=== PATIENT | female | born 1950 | race Caucasian/White ===

== ENCOUNTER 2020-09-03 07:58 | Emergency (ER) | payer OTHER, SELFPAY ==
[2020-09-03 07:59] VITALS: BP 124/78; PULSE 76; RESP 16; TEMP 36.4; O2SAT 97; BMI 30.2
--- NOTE | 2020-09-03 08:36 | ED.VISSUMM ---
- ER Visit Summary Date of Service: 09/03/20 Chief Complaint: Constipation History of Present Illness: The patient is a 70 F with constipation for the past 10 days. She is passing some small hard stools. She is not having any significant pain in her abdomen or rectum. She is not having any vomiting. No recent illnesses or fevers. No urinary symptoms. She had prior colonoscopies that showed polyps. Nothing recently. She had a remote hysterectomy but no other abdominal surgeries. No history of hernia. She had recent laboratory studies. No abnormalities like low potassium in her history. She has been trying to increase her fluids and activity. She is taking prunes, MiraLAX, milk of magnesia. She had some liquid runoff but nothing else. Physical Examination: Afebrile and vital signs unremarkable. Alert and in no acute distress. Abdomen soft and nontender. No guarding or rebound. Skin appears normal. Exam otherwise unremarkable. Test Results: None indicated Emergency Department Course and Treatment: Patient has no history or exam findings to suggest obstruction. No recent illnesses, fevers, viral infections. No history of electrolyte abnormalities or anything to suggest this. She is not having pain or signs or symptoms of an impaction. I believe it is appropriate to continue with medical management. We will try magnesium citrate and she was given instructions to follow-up with her doctor. Return for any pain or new or worsening issues. Treatment Plan: As above Disposition: Discharge Impression: Constipation This note was generated with [employer] dictation software. It may contain incorrect words, spelling, and punctuation that were not noted in review of the chart prior to signing ED Disposition - Plan for ED Patient: Referrals: Jordan Tamayo III, MD [Primary Care Provider] -
--- NOTE | 2020-09-03 08:38 | ED.DEP ---
ED Disposition - Plan for ED Patient: Instructions: ED Constipation (Adult) Referrals: Jordan Tamayo III, MD [Primary Care Provider] -
[2020-09-03] MEDS: Magnesium Citrate 300 ML PO (09:14)
== END 2020-09-03 09:15 | disposition home or self-care (01) ==
PROVIDERS: Emergency Provider Emergency Medicine; PCP Family Medicine
DX: K59.00 Constipation, unspecified (principal)
CPT/HCPCS: 99282

== ENCOUNTER 2021-03-27 09:13 | Emergency (ER) | payer OTHER, SELFPAY ==
[2021-03-27 09:14] VITALS: BP 164/95; PULSE 76; RESP 16; TEMP 37.5; O2SAT 97; BMI 30.5
--- NOTE | 2021-03-27 09:36 | VDLE_ITS ---
Reason For Study: Pain RIGHT LEFT CFV is compressible, spontaneous, phasic, GSV is normal. competent and demonstrates normal CFV is compressible, spontaneous, phasic, augmentation. competent, and demonstrates normal Procedure augmentation. This is a venous duplex using B-mode, color FV is compressible, spontaneous, phasic, flow and spectral Doppler. competent and demonstrates normal Exam performed portable in ED. augmentation. A preliminary report was called and/or faxed POP V is compressible, spontaneous, phasic, to [facility]. competent and demonstrates normal augmentation. T/P Trunk is compressible. PTV is compressible. LT PerV is compressible. VL/Venous Duplex US, Unilateral Interpretation Summary There is no evidence of left lower extremity deep vein thrombosis. Left great s aphenous vein appears patent and compressible segmentally. Patent, compressible right common femoral vein Ordering Physician: Kristopher Qiu Referring Physician: ANTONINO Tamayo M.D. Performed By: Jenny Mcneil RVT
--- NOTE | 2021-03-27 09:37 | EDS_ITS ---
HPI History of Present Illness Chief Complaint: Other, Pain/Inj Informant: patient Narrative Narrative: 70-year-old female presents the emergency room with left calf pain. Patient states that she got up out of a chair yesterday and got a pain in the mid left calf. She thought it felt more muscular so she tried to work it out and could not find and not no still painful this morning. Having had a prior DVT and PE in the past she was concerned and came to emergency. She denies any swelling. No recent surgeries trips immobilization or known cancer. [facility] Medical History (Updated 03/27/21 @ 09:[address] Kristopher Qiu DO) History of pulmonary embolism Hyperlipidemia Hypertension Personal history of DVT (deep vein thrombosis) Allergy/AdvReac Type Severity Reaction Status Date / Time cefdinir [From Omnicef] Allergy Hives Verified 03/27/21 09:16 levofloxacin [From Levaquin] Allergy Rash Verified 03/27/21 09:16 oxaprozin [From Daypro] Allergy Rash Verified 03/27/21 09:16 Surgical History (Updated 03/27/21 @ 09:[address] Kristopher Qiu DO) History of partial hysterectomy Social History (Updated 03/27/21 @ 09:[address] Kristopher Qiu DO) Smoking Status: Never smoker substance use type: does not use ROS ROS ED Constitutional Constitutional ED: Denies chills, fever(s) or weight loss Eyes Eyes: Denies change in vision or diplopia ENT ENT ED: Denies ear pain, rhinorrhea or sore throat Cardiovascular Cardiovascular: Denies chest pain, orthopnea, palpitations or racing heartbeat Respiratory/Chest Respiratory/Chest: Denies cough, dyspnea or orthopnea Gastrointestinal Gastrointestinal: Denies abdominal pain, diarrhea, nausea or vomiting Genitourinary Genitourinary ED: Denies dysuria, hematuria or urinary frequency Musculoskeletal Musculoskeletal: Reports other Details: Left calf pain ; Denies arthralgias or myalgias Integumentary Denies abscess or rash Neurologic Neurologic: Denies headache(s) or weakness Psychiatric Psychiatric: Denies anxiety, depression, suicidal ideation or suicidal thoughts Endocrine Endocrinology: Denies polydipsia, polyphagia or polyuria Allergic/Immunologic Allergic/Immunologic ED: Denies mouth swelling, tongue swelling or urticaria EXAM Physical Exam Const Vital Signs: 03/27/21 09:14 Temperature 99.5 F H Temperature Source Temporal Pulse Rate 76 Respiratory Rate 16 Blood Pressure 164/95 H Blood Pressure Mean 118 Pulse Ox 97 Oxygen Delivery Method Room Air Positive well nourished and well developed General Appearance ED: well developed HEENT Reports normocephalic, head/scalp atraumatic, TM's clear and moist mucous membranes Negative for trauma Tympanic Membrane ED: Yes TM's clear Eyes PERRL and EOMs intact bilaterally Neck no lymphadenopathy, supple and no JVD Resp normal respiratory effort and clear to auscultation bilaterally Cardio regular rate, regular rhythm and no murmurs GI normal to inspection, nondistended, normoactive bowel sounds and non-tender Palpation: soft Back/Spine no CVA tenderness and normal ROM Extremity Extremity Narrative: Patient has tenderness to palpation in the mid left calf along the gastrocnemius and soleus musculature. Noted some discomfort with dorsiflexion. General Extremety ED: Negative for edema General Extremity: Negative for edema Neuro oriented x3 and CN's II-XII intact bilaterally Sensorium / Orientation: alert Motor Exam: strength 5/5 throughout Psych mental status grossly normal Mood & Affect: Negative for depressed or tearful Skin no rashes or lesions noted and no wounds Discharge Plan Triage Chief Complaint: Other, Pain/Inj ED Provider: Kristopher Qiu Dx/Rx/DC Orders Primary Care Provider: Jordan Tamayo III
== END 2021-03-27 10:43 | disposition home or self-care (01) ==
LOC: ED 09:56
PROVIDERS: Emergency Provider Emergency Medicine; PCP Family Medicine
DX: M79.662 Pain in left lower leg (principal); Z86.711 Personal history of pulmonary embolism; Z86.718 Personal history of other venous thrombosis and embolism
CPT/HCPCS: 93971; 99282